=== PATIENT | female | born 1995 | race Hispanic/Latino ===

== ENCOUNTER 2018-01-09 15:54 | Observation (INO) | payer MEDICAID, OTHER ==
[~2018-01-09 15:54] MED LIST: ACET1TAB12 PO; DOCU240C80 PO; IRON1CAP30 PO; MO8B PO; PNV71COM3 PO
[2018-01-09] MEDS ORDERED: CEFAZOLIN 2GM / 50 ML 50 ML IV SCH (16:45)
[2018-01-09] MEDS ORDERED: ACETAMINOPHEN-CODEINE 300/30MG TAB PO PRN (16:45)
[2018-01-09 16:59] LABS: BASOPHILS % (AUTO) 0.5 % (0.0-5.0); EOSINOPHILS % (AUTO) 0.6 % (0.0-8.0); HEMATOCRIT 39.6 % (36-48); LYMPHOCYTES % (AUTO) 18.4 % (21.0-51.0); MEAN CORPUSCULAR HEMOGLOBIN 26.5 pg (27.0-33.0); MEAN CORPUSCULAR HGB CONC 34.3 g/dL (32.0-36.0); MEAN CORPUSCULAR VOLUME 77.3 fL (79-99); MONOCYTES % (AUTO) 6.2 % (3.0-13.0); NEUTROPHILS % (AUTO) 74.3 % (40.0-77.0); PLATELET COUNT (AUTO) 260 K/uL (130-400); RED BLOOD CELL COUNT(AUTO) 5.13 MIL/uL (4.00-5.50); RED CELL DISTRIBUTION WIDTH 16.4 % (11.0-15.5); WHITE BLOOD COUNT (AUTO) 10.9 K/uL (4.8-10.8)
[2018-01-09] MEDS: DEXTROSE 5%-LACTATED RINGERS 1,000 ML IV SCH ×2 (17:09→23:07)
[2018-01-09 17:34] VITALS: BP 116/76
[2018-01-09] MEDS: CEFAZOLIN SODIUM 1 GM VIAL IVP SCH (18:26)
[2018-01-09 19:25] VITALS: BP 112/58
[2018-01-09 23:45] VITALS: BP 101/60
[2018-01-10] MEDS: CEFAZOLIN SODIUM 1 GM VIAL IVP SCH ×2 (01:51→10:31)
[2018-01-10 03:30] VITALS: BP 114/62
[2018-01-10] MEDS: DEXTROSE 5%-LACTATED RINGERS 1,000 ML IV SCH (05:07)
[2018-01-10 07:43] VITALS: BP 113/72
[2018-01-10 11:41] VITALS: BP 127/61
== END 2018-01-10 12:50 | disposition home or self-care (01) ==
LOC: EDH 15:54 → WSH 15:55
PROVIDERS: ADMIT Specialist; ATTEND Specialist
DX: N12 Tubulo-interstitial nephritis, not specified as acute or chronic (principal)
CPT/HCPCS: 36415; 85025; 87088; 96360; 96361 ×2; 99285; A4218 ×3; G0378 ×21; J0690 ×4

== ENCOUNTER 2018-01-11 18:58 | Emergency (ER) | payer SELFPAY ==
[2018-01-11 19:27] LABS: APPEARANCE,URINE CLOUDY (CLEAR); BILIRUBIN,URINE NEGATIVE (NEGATIVE); COLOR,URINE YELLOW (YELLOW); GLUCOSE, URINE (UA) NEGATIVE (NEGATIVE); KETONES,URINE 5 mg/dL (NEGATIVE); LEUKOCYTE ESTERASE ,URINE NEGATIVE (NEGATIVE); NITRATE,URINE NEGATIVE (NEGATIVE); OCCULT BLOOD,URINE LARGE (NEGATIVE); PROTEIN,URINE TRACE (NEGATIVE); UROBILINOGEN,URINE 0.2 mg/dL (0.2-1.0)
[2018-01-11 19:54] LABS: RBC,URINE 26-50 /HPF (0-1); WBC,URINE 0-1 /HPF (0-1)
[2018-01-11 19:55] LABS: BACTERIA,URINE Few /HPF (None Seen); MUCUS,URINE Few LPF (None Seen); SQUAMOUS EPITHELIAL CELL,UR Few /HPF (0-2)
[2018-01-11 20:04] LABS: BASOPHILS % (AUTO) 0.4 % (0.0-5.0); EOSINOPHILS % (AUTO) 0.3 % (0.0-8.0); HEMATOCRIT 41.7 % (36-48); LYMPHOCYTES % (AUTO) 9.8 % (21.0-51.0); MEAN CORPUSCULAR HGB CONC 32.6 g/dL (32.0-36.0); MEAN CORPUSCULAR VOLUME 76.8 fL (79-99); MONOCYTES % (AUTO) 4.5 % (3.0-13.0); NUCLEATED RED BLOOD CELLS 0.1 % (0.0-0.19); PLATELET COUNT (AUTO) 261 K/uL (130-400); RED BLOOD CELL COUNT(AUTO) 5.43 MIL/uL (4.00-5.50); RED CELL DISTRIBUTION WIDTH 16.6 % (11.0-15.5); WHITE BLOOD COUNT (AUTO) 16.1 K/uL (4.8-10.8)
[2018-01-11 20:17] LABS: CREATININE 0.9 mg/dL (0.5-1.5)
[2018-01-11] MEDS ORDERED: KETOROLAC TROMETHAMINE 30MG/ML ONE (20:59)
== END 2018-01-11 21:54 | disposition home or self-care (01) ==
LOC: EDH 18:58
DX: N20.0 Calculus of kidney (principal)
CPT/HCPCS: 36415; 74176; 80048; 81001; 81025; 85025; 96374; 99285; J1885

== ENCOUNTER 2019-05-08 14:30 | Observation (INO) | payer MEDICAID, OTHER ==
[2019-05-08] VITALS (21 sets, daily range): BP systolic 101–133; BP diastolic 57–87
[~2019-05-08] VITALS: Ht 152.4 cm; Wt 67.0 kg
[~2019-05-08 14:30] MED LIST changes: +IBUP-1493 PO; -MO8B PO
[2019-05-08 15:23] LABS: BASOPHILS % (AUTO) 0.3 % (0.0-5.0); EOSINOPHILS % (AUTO) 0.1 % (0.0-8.0); HEMATOCRIT 36.4 % (36-48); LYMPHOCYTES % (AUTO) 4.3 % (21.0-51.0); MEAN CORPUSCULAR HEMOGLOBIN 26.9 pg (27.0-33.0); MEAN CORPUSCULAR VOLUME 81.7 fL (79-99); MONOCYTES % (AUTO) 3.9 % (3.0-13.0); NEUTROPHILS % (AUTO) 91.4 % (40.0-77.0); PLATELET COUNT (AUTO) 242 K/uL (130-400); RED BLOOD CELL COUNT(AUTO) 4.46 MIL/uL (4.00-5.50); RED CELL DISTRIBUTION WIDTH 14.5 % (11.0-15.5)
[2019-05-08 15:33] LABS: CREATININE 0.6 mg/dL (0.5-1.5)
[2019-05-08 15:39] LABS: ALBUMIN 3.7 g/dL (3.5-5.0); BILIRUBIN,TOTAL 0.5 mg/dL (0.2-1.0)
[2019-05-08 16:09] LABS: APPEARANCE,URINE Cloudy (CLEAR); BILIRUBIN,URINE Negative (NEGATIVE); COLOR,URINE Yellow (YELLOW); GLUCOSE, URINE (UA) Negative (NEGATIVE); KETONES,URINE 15 mg/dL (NEGATIVE); LEUKOCYTE ESTERASE ,URINE Trace (NEGATIVE); NITRATE,URINE Negative (NEGATIVE); OCCULT BLOOD,URINE Large (NEGATIVE); PROTEIN,URINE Trace mg/dL (NEGATIVE)
[2019-05-08 16:11] LABS: HCG,QUAL RESULT POSITIVE (NEGATIVE)
[2019-05-08 16:18] LABS: BACTERIA,URINE Few /HPF (None Seen); MUCUS,URINE Few LPF (None Seen); SQUAMOUS EPITHELIAL CELL,UR 0-2 /HPF (0-2)
[2019-05-08] MEDS ORDERED: SODIUM CHLORIDE 0.9% 1000ML 1,000 ML IV ONE (17:03)
[2019-05-08] MEDS ORDERED: DEXTROSE 5%-LACTATED RINGERS 1,000 ML IV SCH ×2 (18:15→20:15)
--- NOTE | 2019-05-08 19:45 | NUR ---
DR. SANCHEZ HERE, ORDERS FOR SURGERY RECEIVED BY DIMPLE.
--- NOTE | 2019-05-08 19:51 | NUR ---
CONSENT SIGNED BY PT.
[2019-05-08] MEDS ORDERED: DEXAMETHASONE SOD PHOSPHATE 10MG/ML 1ML VIAL ONE ×2 (20:24→21:18)
[2019-05-08] MEDS ORDERED: LIDOCAINE PF 2% 5ML ABBOJECT ONE ×2 (20:24→21:19)
[2019-05-08] MEDS ORDERED: SUCCINYLCHOLINE 200MG/10ML SYR ONE (20:24)
[2019-05-08] MEDS ORDERED: ONDANSETRON HCL 4 MG/2 ML VIAL ONE (20:25)
[2019-05-08] MEDS ORDERED: NEOSTIGMINE 5MG/5ML SYR IV ONE (20:25)
[2019-05-08] MEDS ORDERED: MIDAZOLAM HCL 1 MG/ML 2ML VIAL ONE (20:25)
[2019-05-08] MEDS ORDERED: ROCURONIUM 10MG/1ML SYR 10 MG/ML ML ONE (20:25)
[2019-05-08] MEDS ORDERED: PROPOFOL 10 MG/ML 20ML VIAL IV ONE ×2 (20:25→21:53)
[2019-05-08] MEDS ORDERED: GLYCOPYRROLATE 1 MG/5 ML SYRINGE ONE (20:25)
[2019-05-08] MEDS ORDERED: FENTANYL CITRATE PF 50 MCG/1 ML 2ML VIAL ONE ×3 (20:26→21:14)
--- NOTE | 2019-05-08 20:40 | NUR ---
PT. TAKEN TO O.R BY SURGERY STAFF.
[2019-05-08] MEDS ORDERED: CEFAZOLIN SODIUM 1 GM VIAL ONE (20:43)
[2019-05-08] MEDS ORDERED: ESMOLOL HCL 10 MG/ML 10 ML VIAL ONE ×2 (21:07→21:18)
[2019-05-08] MEDS ORDERED: METOCLOPRAMIDE 10 MG/2 ML VIAL ONE (21:18)
[2019-05-08] MEDS ORDERED: LIDOCAINE HCL 4% LTA SOL 4 ML VIAL ONE (21:19)
[2019-05-08] MEDS ORDERED: DEXTROSE 5 %-0.45 % NACL 1,000 ML IV PRN (21:55)
[2019-05-08] MEDS ORDERED: BISACODYL 10 MG SUPP.RECT RC PRN (22:00)
[2019-05-08] MEDS ORDERED: SIMETHICONE 80 MG TAB.CHEW PO PRN (22:00)
[2019-05-08] MEDS ORDERED: ACETAMINOPHEN-CODEINE 300/30MG TAB PO PRN (22:00)
[2019-05-08] MEDS ORDERED: PROMETHAZINE HCL 25 MG/ML 1ML AMPULE IM PRN ×2 (22:00)
[2019-05-08] MEDS ORDERED: MEPERIDINE-PF 75 MG/ML SYG IM PRN (22:00)
[2019-05-08] MEDS ORDERED: DOCUSATE SODIUM 100 MG CAP PO PRN (22:00)
[2019-05-08] MEDS ORDERED: IBUPROFEN 600 MG TABLET PO PRN (22:00)
[2019-05-08] MEDS ORDERED: MEPERIDINE-PF 25 MG/ML SYG ONE (22:24)
--- NOTE | 2019-05-08 23:20 | NUR ---
PT. BACK FROM SURGERY, REPORT RECEIVED FROM JAZMÍN ROSSI.
[2019-05-09 00:05] VITALS: BP 121/59
[2019-05-09 00:35] VITALS: BP 111/65
[2019-05-09 01:05] VITALS: BP 117/63
[2019-05-09 02:05] VITALS: BP 117/70
[2019-05-09 03:22] VITALS: BP 114/65
--- NOTE | 2019-05-09 06:12 | NUR ---
SHERRI ANGEL, PT. INST TO CALL FOR ASSIST BEFORE GETTING OUT OF BED, VERBALIZED UNDERSTANDING. Addendum: 05/09/19 at 0621 by RADHA ABDI RN RN Amended: Links added.
[2019-05-09 06:43] LABS: HEMATOCRIT 35.1 % (36-48); MEAN CORPUSCULAR HEMOGLOBIN 26.9 pg (27.0-33.0); MEAN CORPUSCULAR HGB CONC 32.7 g/dL (32.0-36.0); MEAN CORPUSCULAR VOLUME 82.1 fL (79-99); PLATELET COUNT (AUTO) 240 K/uL (130-400); RED BLOOD CELL COUNT(AUTO) 4.28 MIL/uL (4.00-5.50); RED CELL DISTRIBUTION WIDTH 14.6 % (11.0-15.5); WHITE BLOOD COUNT (AUTO) 12.3 K/uL (4.8-10.8)
[2019-05-09 07:25] VITALS: BP 116/75
--- NOTE | 2019-05-09 14:20 | NUR ---
DISCHARGE PT LEFT UNIT VIA WHEELCHAIR, ACCOMPANIED BY FAMILY. DENIED PAIN AND HAD NO COMPLAINTS. TRANSPORTED BY PERSONAL VEHICLE.
== END 2019-05-09 14:20 | disposition home or self-care (01) ==
LOC: EDH 14:30 → WSH 14:31
PROVIDERS: ADMIT Specialist; ATTEND Specialist
DX: O26.891 Other specified pregnancy related conditions, first trimester (principal); R10.2 Pelvic and perineal pain; Z3A.01 Less than 8 weeks gestation of pregnancy
CPT/HCPCS: 36415 ×2; 59120; 76817; 80053; 81001; 81025; 83690; 84702; 85025; 85027; 86850; 86900; 86901; 88304; 88305; 99284; A4344; A4452; G0378 ×18; J0330; J0690; J1100 ×2; J2001 ×2; J2175; J2250; J2405; J2704 ×2; J2710; J2765; J3010 ×3; J3490 ×3; J7030; J7120

== ENCOUNTER 2020-12-08 08:36 | Emergency (ER) | payer MEDICAID, OTHER ==
[2020-12-08] MEDS ORDERED: PROMETHAZINE HCL 25 MG/ML 1ML AMPULE IM ONE (08:37)
[2020-12-08] MEDS ORDERED: 0.9%NACL 1000ML 1,000 ML IV ONE ×2 (08:56→08:57)
[2020-12-08] MEDS ORDERED: 0.9%NACL 50ML 50 ML IV ONE (08:57)
[2020-12-08 09:01] LABS: BASOPHILS % (AUTO) 0.4 % (0.0-5.0); EOSINOPHILS % (AUTO) 0.4 % (0.0-8.0); HEMATOCRIT 39.6 % (36-48); LYMPHOCYTES % (AUTO) 12.2 % (21.0-51.0); MEAN CORPUSCULAR HEMOGLOBIN 25.8 pg (27.0-33.0); MEAN CORPUSCULAR HGB CONC 32.1 g/dL (32.0-36.0); MEAN CORPUSCULAR VOLUME 80.3 fL (79-99); MONOCYTES % (AUTO) 6.5 % (3.0-13.0); NEUTROPHILS % (AUTO) 80.1 % (40.0-77.0); PLATELET COUNT (AUTO) 228 K/uL (130-400); RED BLOOD CELL COUNT(AUTO) 4.93 MIL/uL (4.00-5.50); RED CELL DISTRIBUTION WIDTH 16.1 % (11.0-15.5); WHITE BLOOD COUNT (AUTO) 10.2 K/uL (4.8-10.8)
[2020-12-08 09:03] LABS: APPEARANCE,URINE Clear (CLEAR); BILIRUBIN,URINE Negative (NEGATIVE); COLOR,URINE Yellow (YELLOW); GLUCOSE, URINE (UA) Negative (NEGATIVE); KETONES,URINE 40 mg/dL (NEGATIVE); LEUKOCYTE ESTERASE ,URINE Trace (NEGATIVE); NITRATE,URINE Negative (NEGATIVE); OCCULT BLOOD,URINE Negative (NEGATIVE); PH,URINE 7.5 (5.0-8.0); PROTEIN,URINE Trace mg/dL (NEGATIVE)
[2020-12-08 09:11] LABS: BACTERIA,URINE Rare /HPF (None Seen); MUCUS,URINE Rare LPF (None Seen); RBC,URINE 0-1 /HPF (0-1); SQUAMOUS EPITHELIAL CELL,UR Rare /HPF (0-2); WBC,URINE 0-1 /HPF (0-1)
[2020-12-08 09:40] LABS: ALBUMIN 3.6 g/dL (3.5-5.0); BILIRUBIN,TOTAL 0.2 mg/dL (0.2-1.0); CREATININE 0.6 mg/dL (0.5-1.5); POTASSIUM 3.2 mmol/L (3.5-5.1); TOTAL PROTEIN, SERUM 8.1 g/dL (6.0-8.3)
== END 2020-12-08 12:02 | disposition home or self-care (01) ==
LOC: EDH 08:36
DX: O21.0 Mild hyperemesis gravidarum (principal); O99.282 Endocrine, nutritional and metabolic diseases complicating pregnancy, second trimester; E86.0 Dehydration; Z98.890 Other specified postprocedural states; Z3A.16 16 weeks gestation of pregnancy
CPT/HCPCS: 36415; 76801; 80053; 81001; 83690; 84702; 85025; 96365; 99284; J2550; J7030 ×2

== ENCOUNTER 2025-02-03 07:16 | Emergency (ER) | payer BC, MEDICAID ==
[~2025-02-03] VITALS: Ht 152.4 cm; Wt 81.6 kg
--- NOTE | 2025-02-03 07:23 | NUR ---
PT JUST NOW PLACED IN MY ED BED 9
[2025-02-03 07:28] VITALS: BP 127/87; PULSE 99; RESP 16; TEMP 98.5; O2SAT 99
[2025-02-03] MEDS: 0.9%NACL 1000ML 1,000 ML IV ONE (08:00)
[2025-02-03] MEDS: ondanSETRON 4MG INJ IVP ONE (08:01)
[2025-02-03 08:16] LABS: BASOPHILS # (AUTO) 0.01 K/uL (0.00-0.20); BASOPHILS % (AUTO) 0.2 % (0.0-5.0); EOSINOPHILS # (AUTO) 0.01 K/uL (0.00-0.70); EOSINOPHILS % (AUTO) 0.2 % (0.0-8.0); HEMATOCRIT 36.1 % (36-48); IMMATURE GRANULOCYTE ABSOLUTE 0.01 K/uL (0-1); LYMPHOCYTES # (AUTO) 0.7 K/uL (1.0-4.8); LYMPHOCYTES % (AUTO) 15.5 % (21.0-51.0); MEAN CORPUSCULAR HEMOGLOBIN 19.9 pg (27.0-33.0); MEAN CORPUSCULAR HGB CONC 29.9 g/dL (32.0-36.0); MEAN CORPUSCULAR VOLUME 66.5 fL (79-99); MONOCYTES # (AUTO) 0.4 K/uL (0.1-1.0); MONOCYTES % (AUTO) 9.9 % (3.0-13.0); NEUTROPHILS # (AUTO) 3.1 K/uL (1.8-7.7); PLATELET COUNT (AUTO) 230 K/uL (130-400); RED BLOOD CELL COUNT(AUTO) 5.43 MIL/uL (4.00-5.50); RED CELL DISTRIBUTION WIDTH 19.2 % (11.0-15.5); WHITE BLOOD COUNT (AUTO) 4.3 K/uL (4.8-10.8)
[2025-02-03 08:42] LABS: CARBON DIOXIDE 24 mmol/L (21-32); CHLORIDE 99 mmol/L (101-111); CREATININE 0.7 mg/dL (0.5-1.0); GLOMERULAR FILTR. RATE CALC 120 mL/min (>90); GLUCOSE,RANDOM 109 mg/dL (70-105); POTASSIUM 3.5 mmol/L (3.5-5.1); SODIUM SERUM 139 mmol/L (136-145); UREA NITROGEN, BLOOD 15 mg/dL (7-18)
[2025-02-03 08:46] LABS: ALANINE AMINOTRANSFERASE 25 U/L (12-78); ALBUMIN 4.1 g/dL (3.5-5.0); ASPARTATE AMINOTRANSFERASE 29 U/L (10-37); BILIRUBIN,DIRECT < 0.1 mg/dL (0.0-0.3); BILIRUBIN,TOTAL 0.3 mg/dL (0.2-1.0); TOTAL PROTEIN, SERUM 8.2 g/dL (6.0-8.3)
[2025-02-03 09:08] LABS: APPEARANCE,URINE CLOUDY (CLEAR); BILIRUBIN,URINE NEGATIVE (NEGATIVE); COLOR,URINE YELLOW (YELLOW); GLUCOSE, URINE (UA) NEGATIVE (NEGATIVE); KETONES,URINE 60 mg/dL (NEGATIVE); LEUKOCYTE ESTERASE ,URINE NEGATIVE Leu/uL (NEGATIVE); NITRATE,URINE NEGATIVE (NEGATIVE); OCCULT BLOOD,URINE SMALL (NEGATIVE); PROTEIN,URINE 20 mg/dL (NEGATIVE); UROBILINOGEN,URINE 0.2 mg/dL (0.2-1.0)
--- NOTE | 2025-02-03 09:16 | ERN ---
ED Note History of Present Illness Stated Complaint: ABD PAIN, N/V Chief Complaint: Nausea,Vomiting,Diarrhea Time Seen by MD: 07:30 Dictation: 29-year-old female presents to the ED for evaluation of abdominal pain onset two days ago. Patient reports fever, nausea and vomiting, but denies any other associated symptoms at this time. Patient states symptoms have been worsening. Allergies: Coded Allergies: No Known Drug Allergies (Verified Allergy, Unknown, 04/02/14) Home Meds Active Scripts Ondansetron (Ondansetron Odt) 4 Mg Tab.rapdis, 1 TAB PO Q12H PRN for nausea/vomiting for 5 Days, #10 TAB 0 Refills Prov:DAVID BATISTA MD 02/03/25 Past Medical History Past Medical History: No Pertinent History Surgical History: Surgical History Other: ECTOPIC Review of System Dictation Constitutional: Positive for fever negative for chills, and weight loss Eyes: Negative for injury, pain,redness, and discharge ENT: Negative for injury,pain or swelling Cardiovascular: Negative for chest pain, palpitations, and edema Respiratory: Negative for shortness of breath, cough, and wheezing, Abdomen/GI: Positive for abdominal pain, nausea and vomiting negative for diarrhea, and constipation Back: Negative for injury and pain : Negative for injury, bleeding and discharge MS/Extremity: Negative for injury and deformity Skin: Negative for rash, and discoloration Neuro: Negative for headache, weakness, numbness, tingling, and seizure Psych: Negative for suicide ideation, homicidal ideation, and hallucinations Initial Vital Sign VS Vital Signs Date Time Temp Pulse Resp B/P (MAP) Pulse Ox O2 Delivery O2 Flow Rate FiO2 02/03/25 07:18 99.9 109 16 122/86 100 Room Air 0 02/03/25 07:28 21 Physical Exam Dictation General: awake, alert, NAD Head/Face: Normocephalic, atraumatic Eyes: PERRL, EOMI, vision at baseline ENT: oral cavity clear, TMs clear, no signs of infection Neck: Trachea midline, supple, no nuchal rigidity Cardiovascular: RRR, normal S1/S2, No MRGs, no JVD Respiratory: CTAB, no respiratory distress, No rales or wheezes Abdomen: Soft, non-tender, non-distended, normal bowel sounds, no guarding or rebound. Skin: Warm, dry, normal turgor, no rash MS/Extremity: Pulses equal, no cyanosis, neurovascular intact, FROM Neuro: COAx4, GCS 15, strength 5/5, CN 2-12 intact, normal cerebellar exam, nor mal gait, Psych: Normal behavior, mood, and affect normal Results (Laboratory/Radiology) Laboratory/Radiology Laboratory Tests Test 02/03/25 07:25 02/03/25 07:41 Urine Color YELLOW (YELLOW) Urine Appearance CLOUDY (CLEAR) H Urine pH 6.0 (5.0-8.0) Urine Specific [place] 1.019 (1.001-1.031) Urine Protein 20 mg/dL (NEGATIVE) H Urine Glucose (UA) NEGATIVE mg/dL (NEGATIVE) Urine Ketones 60 mg/dL (NEGATIVE) H Urine Occult Blood SMALL (NEGATIVE) H Urine Nitrate NEGATIVE (NEGATIVE) Urine Bilirubin NEGATIVE mg/dL (NEGATIVE) Urine Urobilinogen 0.2 mg/dL (0.2-1.0) Urine Leukocyte Esterase NEGATIVE Ancelmo/uL Urine RBC 2-5 /HPF (0-1) H Urine WBC 2-5 /HPF (0-1) H Urine Squamous Epithelial Cells Few /HPF (0-2) Urine Bacteria None Seen /HPF (None Seen) Urine HCG, Qualitative NEGATIVE (NEGATIVE) White Blood Count 4.3 K/uL (4.8-10.8) L Red Blood Count 5.43 MIL/uL (4.00-5.50) Hemoglobin 10.8 g/dL (12.0-16.0) L Hematocrit 36.1 % (36-48) Mean Corpuscular Volume 66.5 fL (79-99) L Mean Corpuscular Hemoglobin 19.9 pg (27.0-33.0) L Mean Corpuscular Hemoglobin Concent 29.9 g/dL (32.0-36.0) L Red Cell Distribution Width 19.2 % (11.0-15.5) H Platelet Count 230 K/uL (130-400) Mean Platelet Volume fL (7.5-10.5) Immature Granulocyte % (Auto) 0.2 % (0-1) Neutrophils (%) (Auto) 74.0 % (40.0-77.0) Lymphocytes (%) (Auto) 15.5 % (21.0-51.0) L Monocytes (%) (Auto) 9.9 % (3.0-13.0) Eosinophils (%) (Auto) 0.2 % (0.0-8.0) Basophils (%) (Auto) 0.2 % (0.0-5.0) Neutrophils # (Auto) 3.1 K/uL (1.8-7.7) Lymphocytes # (Auto) 0.7 K/uL (1.0-4.8) L Monocytes # (Auto) 0.4 K/uL (0.1-1.0) Eosinophils # (Auto) 0.01 K/uL (0.00-0.70) Basophils # (Auto) 0.01 K/uL (0.00-0.20) Absolute Immature Granulocyte (auto 0.01 K/uL (0-1) Nucleated Red Blood Cells 0.0 % (0.0-0.19) Red Blood Cell Morphology See comments Sodium Level 139 mmol/L (136-145) Potassium Level 3.5 mmol/L (3.5-5.1) Chloride Level 99 mmol/L (101-111) L Carbon Dioxide Level 24 mmol/L (21-32) Blood Urea Nitrogen 15 mg/dL (7-18) Creatinine 0.7 mg/dL (0.5-1.0) Glomerular Filtration Rate Calc 120 mL/min (>90) Random Glucose 109 mg/dL (70-105) H Total Calcium 8.9 mg/dL (8.5-10.1) Total Bilirubin 0.3 mg/dL (0.2-1.0) Direct Bilirubin < 0.1 mg/dL (0.0-0.3) Aspartate Amino Transf (AST/SGOT) 29 U/L (10-37) Alanine Aminotransferase (ALT/SGPT) 25 U/L (12-78) Alkaline Phosphatase 83 U/L (50-136) Total Protein 8.2 g/dL (6.0-8.3) Albumin 4.1 g/dL (3.5-5.0) Lipase 96 U/L (16-77) H Labs Reviewed?: Yes ED Course ED Course Orders Procedure Category Date Status Time Basic Metabolic Panel LAB 02/03/25 Complete 07:53 Cbc With Differential LAB 02/03/25 Complete 07:53 Hepatic Function Panel LAB 02/03/25 Complete 07:53 Urinalysis Profile LAB 02/03/25 Complete 07:53 Lipase LAB 02/03/25 Complete 07:53 ,Urine Test LAB 02/03/25 Complete 07:53 Ondansetron 4mg Inj PHA 02/03/25 Complete (Zofran 4mg Inj) 08:00 0.9%Nacl 1000ml (Ns PHA 02/03/25 Complete 1000ml) 08:00 Current Medications Medications (Trade) Dose Ordered Sig/Armin Route PRN Reason Start Time Stop Time Status Last Admin Dose Admin Ondansetron HCl (zoFRAN 4MG INJ) 8 mg ONCE ONCE IVP 02/03/25 08:00 02/03/25 08:02 DC 02/03/25 08:01 Sodium Chloride 1,000 ml @ 0 mls/hr ONCE ONCE IV 02/03/25 08:00 02/03/25 08:02 DC 02/03/25 08:00 Vital Signs Date Time Temp Pulse Resp B/P (MAP) Pulse Ox O2 Delivery O2 Flow Rate FiO2 02/03/25 07:28 98.4 99 16 127/87 99 Room Air* 0 21 02/03/25 07:18 99.9 109 16 122/86 100 Room Air 0 Medical Decision Making MDM MDM: Differential diagnosis: Abdominal pain, acute gastroenteritis Risk of complication and/or morbidity or mortality of patient management: None Medications-Per medication reconciliation Need for hospitalization: Patient does not meet criteria for hospitalization. Need for emergency major/minor surgery: No There are no social concerns with this patient. Prescription drug management Prescriptions will include symptomatic care I independently interpreted the test that were performed, results were reviewed by me and considered findings on radiology if ordered. DX & DISP Disposition: Discharge Departure Impression: Primary Impression: Acute gastroenteritis Condition: Stable Scripts Ondansetron (Ondansetron Odt) 4 Mg Tab.rapdis 1 TAB PO Q12H PRN for nausea/vomiting for 5 Days, #10 TAB 0 Refills Prov: DAVID BATISTA MD 02/03/25 Referrals: SELF,REFERRAL (PCP) DAVID BATISTA MD February 03, 2025 09:16
[2025-02-03 09:21] LABS: ADD UA MICROSCOPIC YES
[2025-02-03 09:24] LABS: BACTERIA,URINE None Seen /HPF (None Seen); MUCUS,URINE Rare LPF (None Seen); SQUAMOUS EPITHELIAL CELL,UR Few /HPF (0-2)
[2025-02-03 09:28] LABS: HCG,QUALITATIVE URINE NEGATIVE (NEGATIVE)
--- NOTE | 2025-02-03 09:29 | NUR ---
ALL RESULTS IN. PENDING DISPOSITION
[2025-02-03] MEDS ORDERED: ONDA-243 PO (09:37)
== END 2025-02-03 09:56 | disposition home or self-care (01) ==
LOC: EDH 07:16
DX: K52.9 Noninfective gastroenteritis and colitis, unspecified (principal); Z98.890 Other specified postprocedural states
CPT/HCPCS: 99284; 96374; 96361; 80076; 80048; 83690; 85025; 81001; 81025; 36415; J7030; J2405